=== PATIENT | male | born 1955 | race Caucasian/White ===

== ENCOUNTER → 2024-03-20 09:25 | Outpatient (REF) | payer BC, SELFPAY | LOC: HWRAD 09:25 | PROVIDERS: ATTENDING PHYSICIAN Registered Nurse | DX: M25.562 Pain in left knee (principal) | CPT/HCPCS: 73564 ==

== ENCOUNTER → 2024-05-22 12:25 | Outpatient (REF) | payer BC, SELFPAY | LOC: HWRAD 12:25 | PROVIDERS: ATTENDING PHYSICIAN Nurse Practitioner Adult Health | DX: R05.1 Acute cough (principal) | CPT/HCPCS: 71046 ==